=== PATIENT | female | born 1940 | race Caucasian/White ===

== ENCOUNTER 2019-05-11 16:26 | Outpatient (CLI) | payer MEDICARE | END 2019-05-11 23:59 | disposition home or self-care (01) | LOC: RAD 16:26 | PROVIDERS: ATTEND Family Medicine | DX: I82.811 Embolism and thrombosis of superficial veins of right lower extremity (principal) ==

== ENCOUNTER 2019-05-28 10:34 | Emergency (ER) | payer MEDICARE ==
[~2019-05-28] VITALS: Ht 175.3 cm; Wt 125.0 kg
[2019-05-28 10:57] VITALS: BP 140/58
--- NOTE | 2019-05-28 11:40 | NUR ---
[employer]: PT TO ROOM FROM [facility]
--- NOTE | 2019-05-28 12:06 | NUR ---
PT HAS CO WAKING UP W A BLOOD CLOT IN HER MOUTH THIS AM. PT STATES SHE WENT TO THE DENTIST, THEY TOLD HER SHE MAY HAVE A POSSIBLE ULCER AND SHOULD GO TO THE ED TO BE EXAMINED FURTHER. PT IS ON ELIQUIS FOR DVT RL. PT REQUESTING COMPRESSION SOCKS
--- NOTE | 2019-05-28 12:39 | NUR ---
PT AMBULATED TO BATHROOM W STEADY GATE
[2019-05-28 13:17] LABS: BASOPHILS % (AUTO) 1 % (0-1); EOSINOPHILS # (AUTO) 0.15 x10^3/uL (0-0.4); EOSINOPHILS % (AUTO) 1 % (1-7); LYMPHOCYTES # (AUTO) 2.23 x10^3/uL (1-3.4); LYMPHOCYTES % (AUTO) 17 % (22-44); MD NO; MEAN CORPUSCULAR HEMOGLOBIN 28.1 pg (27.0-34.8); MEAN CORPUSCULAR HGB CONC 32.6 g/dL (32.4-35.8); MEAN CORPUSCULAR VOLUME 86.3 fL (80-100); MEAN PLATELET VOLUME 8.3 fL (7.4-10.4); MONOCYTES # (AUTO) 0.88 x10^3/uL (0.2-0.8); MONOCYTES % (AUTO) 7 % (2-9); NEUTROPHILS % (AUTO) 74 % (42-75); PLATELET COUNT 242 x10^3/uL (130-400); RED BLOOD COUNT 5.28 x10^6/uL (3.82-5.3); RED CELL DISTRIBUTION WIDTH 14.5 % (9.6-15.2)
[2019-05-28 13:24] LABS: INTERNATIONAL NORMALIZED RATIO 1.09 (0.93-1.1); PROTHROMBIN TIME 11.4 Seconds (9.6-11.5)
[2019-05-28 13:26] LABS: ALBUMIN 3.4 g/dL (3.4-5.0); CALCIUM 9.4 mg/dL (8.5-10.1); CREATININE 0.67 mg/dL (0.55-1.02)
[2019-05-28 13:35] LABS: ANION GAP 5 mmol/L (5-15)
[2019-05-28 13:36] LABS: CHLORIDE 111 mmol/L (98-107)
[2019-05-28] MEDS ORDERED: LABETALOL 5MG/ML, 20ML IVPush STA (13:54)
--- NOTE | 2019-05-28 15:03 | NUR ---
Patient/Caregiver given discharge instructions and they have confirmed that they understand the instructions. Patient ambulatory with steady gait.
== END 2019-05-28 15:21 | disposition home or self-care (01) ==
LOC: ED 13:42
DX: J35.8 Other chronic diseases of tonsils and adenoids (principal); I82.401 Acute embolism and thrombosis of unspecified deep veins of right lower extremity; I10 Essential (primary) hypertension
CPT/HCPCS: 36415; 80048; 82040; 85025; 85610; 99284